=== PATIENT | female | born 1955 | race Caucasian/White ===

== ENCOUNTER → 2016-09-14 | Day surgery (SDC) | payer OTHER ==
[~2016-09-14] MED LIST: CALTTAB6 PO; HYDR-2768 PO; LIDOCAINE HCL 1% PF 30 ML VIAL ONE; LORA0.5T PO; SODIUM BICARBONATE 8.4% INJ 50 ML ONE; VARE1 PO
[2016-09-14 13:39] VITALS: BP 144/80; PULSE 90; RESP 14; TEMP 98; O2SAT 99
--- NOTE | 2016-09-16 11:50 | RADRPT ---
EXAM DATE/TIME: 09/14/2016 13:32 [facility] COMPARISON: No previous studies available for comparison. INDICATIONS : Right breast seroma; drain placement. MEDICAL HISTORY : Hypertension. Arthritis. Hernia, hiatal. Breast cancer. SURGICAL HISTORY : Mastectomy, bilateral. Hysterectomy. Left breast lumpectomy and lymph node removal. Right breast lum pectomy. Left shoulder surgery. ENCOUNTER: Initial ACUITY: 4 - 6 months PAIN SCORE: 5/10 LOCATION: Right breast. FLUID: Under CT guidance the 6-Indonesian catheter was placed in the largest room on the right. Total volume of 400 cc of kareem fluid was removed. Fluid was sent to lab for ordered studies. CONCLUSION: Uncomplicated drainage catheter placement. Patient will return Monday a.m. for drain removal if not infected. Doug Fox MD FACR on September 16, 2016 at 11:46 Board Certified Radiologist. This report was verified electronically. Patient returned today, Monday a.m. for drain removal. Gram stain and culture are negative. Drain was removed in its entirety. Patient will wear and gentle binder in an attempt to keep the flu id from reaccumulating. If this remains symptomatic we could attempt to sclerose this cavity with B etadine.
== END | disposition home or self-care (01) ==
LOC: HRAD 13:04
PROVIDERS: ATTEND Surgery
DX: L76.34 Postprocedural seroma of skin and subcutaneous tissue following other procedure (principal); I10 Essential (primary) hypertension; C50.911 Malignant neoplasm of unspecified site of right female breast
CPT/HCPCS: 10160; 19000; 75989; 87070; 87205; C1729; 76942

== ENCOUNTER 2016-09-16 07:52 | Day surgery (SDC) | payer OTHER ==
[~2016-09-16 07:52] MED LIST changes: -LIDOCAINE HCL 1% PF 30 ML VIAL ONE; -SODIUM BICARBONATE 8.4% INJ 50 ML ONE
== END 2016-09-16 10:00 | disposition home or self-care (01) ==
LOC: HRAD 07:52 → HRIP 07:53 → HRAD 10:00
PROVIDERS: ATTEND Surgery
DX: Z48.03 Encounter for change or removal of drains (principal)

== ENCOUNTER 2016-10-21 12:40 | Day surgery (SDC) | payer OTHER ==
[2016-10-21 13:33] VITALS: BP 166/79; PULSE 88; RESP 16; TEMP 97.1; O2SAT 98
--- NOTE | 2016-10-21 15:51 | RADRPT ---
EXAM DATE/TIME: 10/21/2016 13:29 [facility] COMPARISON: No previous studies available for comparison. INDICATIONS : Right chest post-op seroma. MEDICAL HISTORY : Hypertension. Arthritis. Hernia, hiatal. Breast cancer. SURGICAL HISTORY : Mastectomy, bilateral. Hysterectomy. Left breast lumpectomy and lymph node removal. Right breast lump ectomy. Left shoulder surgery. ENCOUNTER: Subsequent ACUITY: 2 months PAIN SCORE: 4/10 LOCATION: Right chest FLUID: Total volume of 200 cc of dark yellow. fluid was removed. Fluid was discarded. Post procedure scanning reveals no hematoma or other complication. TECHNIQUE: 1. Ultrasound guidance for needle aspiration. 2. Aspiration. The risks, benefits, and alternatives to ultrasound guided aspiration were explained to the patient i n detail including the risk of bleeding and infection. Written and verbal informed consent was obtai navi. Under sterile fashion q catheter was placed in the right chest seroma and is drained dry. 60 cc of B etadine solution was then instilled in the cavity and massage throughout. This was allowed to dwell for 30 minutes. This was then removed dressing applied. Under will be used for the next 5 days. CONCLUSION: Uncomplicated ultrasound guided aspiration and sclerosis. Doug Fox MD FACR on October 21, 2016 at 15:48 Board Certified Radiologist. This report was verified electronically.
--- NOTE | 2016-10-21 15:53 | RADRPT ---
EXAM DATE/TIME: 10/21/2016 13:29 [facility] COMPARISON: No previous studies available for comparison. INDICATIONS : Left chest post-op seroma. MEDICAL HISTORY : Hypertension. Arthritis. Hernia, hiatal. Breast cancer. SURGICAL HISTORY : Mastectomy, bilateral. Hysterectomy. Left breast lumpectomy and lymph node removal. Right breast lump ectomy. Left shoulder surgery. ENCOUNTER: Subsequent ACUITY: 2 months PAIN SCORE: 0/10 LOCATION: Left chest FLUID: Total volume of 320 cc of dark brown. fluid was removed. Fluid was discarded. Post procedure scanning reveals no hematoma or other complication. TECHNIQUE: 1. Ultrasound guidance for needle aspiration. 2. Aspiration. The risks, benefits, and alternatives to ultrasound guided aspiration were explained to the patient i n detail including the risk of bleeding and infection. Written and verbal informed consent was obtai navi. Under sterile conditions catheter was placed in the seroma. This was drained dry and 60 cc of Betadi ne solution instilled allowed to dwell for 30 minutes. This was then aspirated out dressing and bind er applied. CONCLUSION: Uncomplicated ultrasound guided aspiration and sclerosis. Doug Fox MD FACR on October 21, 2016 at 15:50 Board Certified Radiologist. This report was verified electronically.
[2016-10-21] MEDS ORDERED: LIDOCAINE HCL 1% PF 30 ML VIAL ONE (15:55)
[2016-10-21] MEDS ORDERED: SODIUM BICARBONATE 8.4% INJ 50 ML ONE (15:55)
== END 2016-10-21 14:00 | disposition home or self-care (01) ==
LOC: HRAD 12:40 → HRIP 12:47 → HRAD 14:00
PROVIDERS: ATTEND Surgery
DX: L76.34 Postprocedural seroma of skin and subcutaneous tissue following other procedure (principal); C50.911 Malignant neoplasm of unspecified site of right female breast; C50.912 Malignant neoplasm of unspecified site of left female breast; I10 Essential (primary) hypertension; Z90.13 Acquired absence of bilateral breasts and nipples
CPT/HCPCS: 10160; 76942; C1729

== ENCOUNTER → 2017-03-22 | Outpatient (CLI) | payer OTHER ==
[~2017-03-22] MED LIST changes: +LIDOCAINE HCL 1% 20 ML VIAL ONE
--- NOTE | 2017-03-22 11:00 | RADRPT ---
EXAM DATE/TIME: 03/22/2017 08:18 [facility] COMPARISON: No previous studies available for comparison. INDICATIONS : Left chest wall seroma. MEDICAL HISTORY : Hypertension. Arthritis. Hernia, hiatal. Breast cancer. SURGICAL HISTORY : Mastectomy, bilateral. Hysterectomy. Left breast lumpectomy andlymph node removal. Right breast lumpe ctomy. Left shoulder surgery. ENCOUNTER: Subsequent ACUITY: 1 day PAIN SCORE: 1/10 LOCATION: Left chest FLUID: Total volume of 230 cc of bloody. fluid was removed. Fluid was sent to lab for ordered studies. TECHNIQUE: 1. Ultrasound guidance for abscess drainage. 2. Abscess drainage. The risks, benefits, and alternatives to ultrasound guided abscess drainage were explained to the pat ient in detail including the risk of bleeding and infection. Written and verbal informed consent was obtained. Under direct ultrasound guidance 6-Swedish catheter was placed in the loculated fluid collection. Col lection was drained completely. Catheter was left in place attached to accordion drain. She will see the Monday afternoon for catheter removal. Patient tolerated the procedure well and the left the ultrasound suite in stable condition. CONCLUSION: Uncomplicated drainage catheter placement. Fluid was sent for Gram stain and culture. Because of th e hemorrhagic nature cytology was not ordered. I believe it is the hemorrhagic nature of the fluid a cute set from disappearing. Doug Fox MD FACR on March 22, 2017 at 10:56 Board Certified Radiologist. This report was verified electronically.
== END ==
LOC: HRAD 07:51 → EDSTATUS 08:30
PROVIDERS: ATTEND Surgery
DX: L76.34 Postprocedural seroma of skin and subcutaneous tissue following other procedure (principal); Z90.12 Acquired absence of left breast and nipple
CPT/HCPCS: 10160; 75989; 87070; 87205; C1729

== ENCOUNTER 2017-05-22 09:43 | Day surgery (SDC) | payer OTHER ==
[~2017-05-22 09:43] MED LIST changes: -LIDOCAINE HCL 1% 20 ML VIAL ONE
[2017-05-22] MEDS ORDERED: DOXYCYCLINE INJ 100 MG in SODIUM CHLORIDE 0.9% INJ 100 ML ONE (10:45)
--- NOTE | 2017-05-22 12:04 | RADRPT ---
EXAM DATE/TIME: 05/22/2017 10:50 [facility] COMPARISON: US GUIDED ABSCESS DRAIN, March 22, 2017, 8:18. INDICATIONS : Left chest wall sermona. MEDICAL HISTORY : Hypertension. Arthritis. Hernia, hiatal. Breast cancer. SURGICAL HISTORY : Mastectomy, bilateral. Hysterectomy. Left breast lumpectomy and lymph node removal. Right breast lump ectomy. Left shoulder surgery. ENCOUNTER: Subsequent ACUITY: 3 months PAIN SCORE: 0/10 LOCATION: Left chest wall. FLUID: Total volume of 250 cc of clear kareem. fluid was removed. Fluid was discarded. Post procedure scanning reveals no hematoma or other complication. TECHNIQUE: 1. Ultrasound guidance for abscess drainage. 2. Abscess drainage. The risks, benefits and alternatives to the procedure were explained and verbal and written consent w as obtained. Will clerosed with doxycycline. The site was prepped in sterile fashion. Full sterile technique was used, including cap, mask, sterile gloves and gown and a large sterile sheet. Hand hyg iene and 2% chlorhexidine and/or betadine/alcohol prep was utilized per protocol for cutaneous antise psis. The skin and subcutaneous tissues were infiltrated with local anesthetic solution. Sterile ge l and sterile probe cover were utilized for ultrasound guidance. Under ultrasound guidance 7-Sammarinese catheter was placed the seroma and 250 cc of clear fluid were stella ana maria. The cavity was sclerosed with 100 mg of doxycycline with dwell time of one hour. The patient tolerated the procedure well and the left the ultrasound suite in stable condition with a ftercare instructions. CONCLUSION: Uncomplicated seroma drainage with doxycycline sclerosis.. Doug Fox MD FACR on May 22, 2017 at 11:59 Board Certified Radiologist. This report was verified electronically.
[2017-05-22] MEDS ORDERED: LIDOCAINE HCL 1% 20 ML VIAL ONE (14:57)
== END 2017-05-22 12:30 | disposition home or self-care (01) ==
LOC: HRIP 09:43 → HRAD 09:43
PROVIDERS: ATTEND Surgery
DX: L76.34 Postprocedural seroma of skin and subcutaneous tissue following other procedure (principal); Z85.3 Personal history of malignant neoplasm of breast; I10 Essential (primary) hypertension; K44.9 Diaphragmatic hernia without obstruction or gangrene; M19.90 Unspecified osteoarthritis, unspecified site
CPT/HCPCS: 10160; 75989; C1729